=== PATIENT | female | born 1940 | race Caucasian/White ===

== ENCOUNTER → 2016-11-14 | Outpatient (CLI) | payer OTHER, BC ==
[~2016-11-14] MED LIST: ATENOLOL 25 MG25 M1 PO; COUMADIN 5 MG TA5 M1 PO; HYDROCHLOROTHIA25 M1 PO; LYRICA 50 MG50 MG PO; NORCO 5-325 TA1 EACH PO; PRAVACHOL40 MG PO; ULTRAM 50MG TAB50 MG PO; ZOCOR40 MG PO
== END ==
LOC: ULTRA 10-14 09:42
DX: I82.511 Chronic embolism and thrombosis of right femoral vein (principal); Z86.718 Personal history of other venous thrombosis and embolism

== ENCOUNTER → 2017-04-10 | Outpatient (CLI) | payer OTHER, BC | LOC: RAD 02:16 | DX: Z12.31 Encounter for screening mammogram for malignant neoplasm of breast (principal) ==

== ENCOUNTER → 2018-04-21 | Outpatient (CLI) | payer OTHER, BC | LOC: RAD 13:56 | DX: Z12.31 Encounter for screening mammogram for malignant neoplasm of breast (principal) ==

== ENCOUNTER 2018-08-10 16:08 | Inpatient (IN) | payer OTHER, BC ==
[~2018-08-10] VITALS: Ht 172.7 cm; Wt 66.7 kg
--- NOTE | ~2018-08-10 | O ---
[facility] [place] [address] OPERATIVE REPORT Name: MAKI RHODES Room #: 431-P [facility] IN M.R.#: [id number] Admission: 08/10/18 Attend Phys: Mary Lizarraga Discharge: Date of : 40 Report #: [id number] THIS REPORT FOR: //name// CC: John Lizarraga DATE OF SERVICE: 08/12/2018 PREOPERATIVE DIAGNOSIS: Left displaced femoral neck fracture. POSTOPERATIVE DIAGNOSIS: Left displaced femoral neck fracture. PROCEDURE: Left hip cemented hemiarthroplasty. SURGEON: Dandre Cross MD EXTRACT MIXER: Tosha Feldman PA-C. INDICATIONS FOR ASSISTANCE: Throughout the case, extensive retraction and manipulation of the hip was required. This was afforded to me by my assistant womens volleyball coach. ANESTHESIA: General endotracheal. IMPLANTS: [employer]ell [employer]hew size 10 Conquest cemented stem with a size 50+0 unipolar cobalt chrome head. ESTIMATED BLOOD LOSS: 50 mL. COMPLICATIONS: None. SPECIMENS: None. CONDITION UPON LEAVING THE OPERATING ROOM: Stable. INDICATION FOR PROCEDURE: The patient is a 78-year-old female who fell and sustained a left displaced femoral neck fracture. After discussion with her, she elected for treatment with hemiarthroplasty. DESCRIPTION OF PROCEDURE: Risks, benefits, alternatives, complications were discussed in detail with the patient including but not limited to risk of anesthesia, risk of damage to nerves, arteries and blood vessels, risk for infection and bleeding, risk for leg length discrepancy, instability and need for reoperation. Informed consent was obtained from the patient and the left hip was appropriately marked in the preoperative holding area. IV Ancef was given for preoperative antibiotics. She was brought to the operating room and general endotracheal anesthesia was induced without complication. She was then [facility] [address] [place] [address] OPERATIVE REPORT Name: MAKI RHODES Room #: 431-P [facility] IN M.R.#: [id number] Admission: 08/10/18 Attend Phys: Mary Lizarraga Discharge: Date of : 40 Report #: [id number] transferred to the operating room table and placed in the right lateral decubitus position with the left hip uppermost. Left hip and lower extremity were prepped and draped in normal sterile fashion. Timeout was performed properly identifying the patient and procedure as well as the instrumentation and implants. All in the operating room were in agreement. Standard posterior approach to the hip was made with a 10 blade through the skin. Dissection was taken down to the fascia with Bovie cautery and fascia was cleaned with Haq elevator. A fresh 10 blade was used to make a fascial incision. This was taken proximally and distally with curved Pickett scissor. Charnley retractor was placed. Trochanteric bursa was taken down with Bovie cautery. Piriformis tendon was identified, tagged and taken down with Bovie cautery. Short external rotators were also taken down with Bovie cautery. Capsulotomy was made and capsule ends were tagged for later repair. There was an obvious femoral neck fracture that was displaced and a femoral neck cut was cleaned up with an oscillating saw. Femoral head was removed and sized and found to be a size 50. A size 50 trial head was placed in the acetabulum and found to have a good fit. Attention was then turned to the femur. This was reamed and broached up to a size 12, at which point, the size 12 broach was stable. This trialed with a standard offset neck and a 40+0 head. The hip was reduced, taken through range of motion, found to be stable, found to have equal leg lengths. Hip was dislocated. Broach was removed. Final size 10 Conquest stem was cemented in place using standard cementation techniques. After the cement cured, this was trialed again with a size 50 head with a +0 neck. Hip was reduced, taken through range of motion, found to be stable, found to have equal leg lengths. Hip was dislocated one last time and a final size 50 cobalt chrome unipolar head with a +0 neck was placed. Hip was reduced, taken through range of motion, found to be stable, found to have equal leg lengths. The hip was thoroughly irrigated with normal saline. A periarticular injection consisting of morphine, ropivacaine, epinephrine and Toradol was placed around the hip joint capsule. A gram of vancomycin was placed deep in the joint. The capsule and piriformis were repaired with 0 FiberWire. Fascia was closed with 0 Vicryl, skin was closed with 2-0 Vicryl and 3-0 Monocryl. Dermabond and a PHYLICIA dressing was applied. The patient tolerated this procedure well and went to recovery room under care of Anesthesia postoperatively. By: [id number] Dandre Cross MD /malorie
[2018-08-10 16:21] VITALS: BP 147/69
[2018-08-10] MEDS ORDERED: DITROPAN XL5 MG PO (16:27)
[2018-08-10] MEDS ORDERED: METOPROLOL SUCC50 MG PO (16:27)
[2018-08-10] MEDS ORDERED: HYDROCHLOROTH12.5 M1 PO (16:27)
[2018-08-10 16:51] LABS: ABSOLUTE NEUTROPHILS 3.8 thou/uL (1.4-8.2); BASOPHILS 1.2 % (0.0-2.0); EOSINOPHILS 1.1 % (0.0-3.0); HEMATOCRIT 45.5 % (37.0-47.0); HEMOGLOBIN 15.9 gm/dL (12.0-15.0); LYMPHOCYTES 22.5 % (24.0-44.0); MCH 30.4 pg (26.0-34.0); MCHC 34.9 g/dL (28.0-37.0); MONOCYTES 7.3 % (1.0-8.0); PLATELET COUNT 150 thou/uL (150-400); POLYS 67.9 % (36.0-66.0); RBC 5.23 mil/uL (4.20-5.00); RDW 13.8 % (10.5-14.5); WBC 5.6 thou/uL (4.0-11.0)
[2018-08-10 16:59] LABS: CALCIUM 9.6 mg/dL (8.5-10.1); CREATININE 1.1 mg/dL (0.6-1.0); POTASSIUM 3.7 mmol/L (3.5-5.1)
[2018-08-10 17:04] LABS: ALBUMIN 4.3 g/dL (3.4-5.0); TOTAL BILIRUBIN 0.5 mg/dL (<0.1-1.0); TOTAL PROTEIN 8.2 g/dL (6.4-8.2)
[2018-08-10 17:30] VITALS: BP 147/69
[2018-08-10 17:58] VITALS: BP 151/64
[2018-08-10 20:15] VITALS: BP 137/79
[2018-08-11 00:12] VITALS: BP 114/64
[2018-08-11 03:39] LABS: CALCIUM 8.7 mg/dL (8.5-10.1); CREATININE 1.3 mg/dL (0.6-1.0)
--- NOTE | 2018-08-11 03:48 | NUR ---
PT S/P L HIP FX. SHE HAS PAIN THAT IS DESCRIBED SPASMS AT TIMES BUT IS ALSO SHARP. SOME BRUISING TO L HIP. SCDS IN PLACE. USING BEDPAN. NOT VOIDING MUCH.IVF INFUSING. NPO AFTER MIDNIGHT.
[2018-08-11 03:52] VITALS: BP 132/51
[2018-08-11 04:01] LABS: BASOPHILS 0.4 % (0.0-2.0); EOSINOPHILS 0.1 % (0.0-3.0); HEMATOCRIT 43.8 % (37.0-47.0); HEMOGLOBIN 14.4 gm/dL (12.0-15.0); LYMPHOCYTES 14.6 % (24.0-44.0); MCH 29.2 pg (26.0-34.0); MCHC 32.9 g/dL (28.0-37.0); MCV 88.8 fL (80.0-100.0); MONOCYTES 6.1 % (1.0-8.0); PLATELET COUNT 139 thou/uL (150-400); POLYS 78.8 % (36.0-66.0); RBC 4.93 mil/uL (4.20-5.00); RDW 14.7 % (10.5-14.5); WBC 6.3 thou/uL (4.0-11.0)
--- NOTE | 2018-08-11 07:38 | NUR ---
PATIENT DOES NOT FEEL SHE NEEDS BREATHING TREATMENTS AND ON LOOKING AT HER HISTORY I DO NOT SEE ANY REASONG WHY SHE IS ORDERED ON Q4 DUONEB, CAN WE PLEASE EITHER D/C THERAPY OR CHANGE TO PRN
--- NOTE | 2018-08-11 07:57 | EKG ---
[place] [address] [facility] [place] [address] ELECTROCARDIOGRAM REPORT Name: MAKI RHODES Room #: 431-P ADM IN M.R.#: [id number] Admission: 08/10/18 Attend Phys: Mary Lizarraga Discharge: Date of : 40 Report #: [id number] THIS REPORT FOR: //name// [facility] ED Test Date: 2018-08-10 Test Time: 16:44:29 Pat Name: MAKI RHODES Department: Room: [facility] Gender: F Trash Collector: ALEISHA : 1940 Requested By: Amado Gaspar Order Number: [id number] MD: Onofre Romero Measurements Intervals Benedicta Rate: 69 P: 67 MN: 216 QRS: 56 QRSD: 101 T: 70 QT: 435 QTc: 466 Interpretive Statements Sinus rhythm Borderline prolonged MN interval Low voltage, precordial leads Compared to ECG 01/15/2012 14:27:19 No significant change was found Electronically Signed On 08-11-2018 7:57:20 WET CHAR CONVEYOR TENDER by Onofre Romero [email or web address] <ELECTRONICALLY SIGNED> By: Onofre Romero MD, [facility] 08/11/18 [id number] Onofre Romero MD, [facility] /EPI
[2018-08-11 08:20] VITALS: BP 132/62
[2018-08-11 11:50] LABS: URINE BILIRUBIN NEGATIVE (Negative); URINE BLOOD 1+ (Negative); URINE CLARITY CLOUDY; URINE COLOR YELLOW; URINE GLUCOSE-RANDOM* NEGATIVE (Negative); URINE KETONES NEGATIVE (Negative); URINE LEUKOCYTES-REFLEX NEGATIVE (Negative); URINE NITRITE-REFLEX NEGATIVE (Negative); URINE PROTEIN (DIPSTICK) NEGATIVE (Negative); URINE SPECIFIC GRAVITY >= 1.030 (1.005-1.035); URINE UROBILINOGEN 0.2 E.U./dl (0.2-1.0)
[2018-08-11 12:01] LABS: AMORPHOUS URATES Many /LPF (None Seen); CASTS None Seen /LPF (None Seen); SQUAMOUS None Seen /LPF (0-3)
[2018-08-11 12:02] LABS: BACTERIA-REFLEX 1-9 Few /HPF (None Seen); URINE RBC 0-2 Rare /HPF (0-2); URINE WBC-REFLEX 0-5 Rare /HPF (0-5)
[2018-08-11 15:42] VITALS: BP 138/63
[2018-08-11 19:54] VITALS: BP 115/97
--- NOTE | 2018-08-11 20:22 | NUR ---
S/P LEFT HIP FX NPO ATER MIDNIGHT. PAIN LLE 8/10 WITH MOVEMENT. AGREED TO PO PAIN MEDS. IN IN L AC NS RUNING @100 CC/HR. MCKAY IN PLACE. LOWER EXT ARE WARM AND PULSES PRESENT. L HIP HAS A BRUISE NOTED. ATE 25% OF EVENING MEAL.
--- NOTE | 2018-08-11 20:29 | NUR ---
ASSUMED CARE AT 0700, SHIFT ASSESSMENT DONE, NPO SINCE LAST NIGHT. PATIENT WAS SUPPOSED TO GO TO SURGERY TODAY FOR HIP FRACTURE. BUT DUE TO SCHEDULING CONFLICT, WAS NOT ABLE TO GO FOR SURGERY, CONSENT SIGNED. WAS STARTED ON DIET THIS AFTERNOON, EATING MODERATE AMOUNT. REPROTED PAIN AND MUSCLE SPASM, PRN PAIN MEDS GIVEN. NPO FROM [facility], SURGERY SCHEDULED FOR TOMORROW MORNING.
--- NOTE | 2018-08-11 22:46 | NUR ---
ATE 25% OF EVENING MEAL. REQUESTED BANNAS AND ICE CREAM, PROVIDED. WILL BE NPO AFTER MIDNIGHT. PRN HYDROCODONE 5MG PO PROVIDED FOR PAIN 8/10 IN LLE.
[2018-08-12 05:47] LABS: HEMATOCRIT 41.4 % (37.0-47.0); HEMOGLOBIN 13.5 gm/dL (12.0-15.0)
[2018-08-12 05:57] VITALS: BP 122/52
--- NOTE | 2018-08-12 05:58 | NUR ---
IV MORPHINE 4MG PROVIDED FOR 04/14 PAIN @ 05:15. 1000 ML BAG OF NS HUNG. PROTONIX HELD D/T NPO. REMAINS NPO FOR SURGICAL PROCEDURE SCHEDULED FOR TODAY. ORAL SWABS PROVIDED. REPOSITIONED WITH L HIP ON WEDGE AND PULLED UP IN BED. 500CC JOANIE URINE EMPTIED FROM MCKAY CATHETER BAG.
[2018-08-12 06:01] LABS: CALCIUM 8.6 mg/dL (8.5-10.1); POTASSIUM 4.1 mmol/L (3.5-5.1)
--- NOTE | 2018-08-12 06:50 | NUR ---
TEMP OF 101.5 NOTED. ORDER OBTAINED FOR TYLENOL SUPPOSITORY, WHICH WAS PROVIDED. PATIENT DENIES ADDITIONAL SYMPTOMS.
[2018-08-12 07:33] LABS: FOLIC ACID 15.9 ng/mL (8.6-58.9)
[2018-08-12 08:40] VITALS: BP 115/49
[2018-08-12 10:00] VITALS: BP 125/52
[2018-08-12 13:24] LABS: HEMATOCRIT 39.4 % (37.0-47.0); HEMOGLOBIN 12.8 gm/dL (12.0-15.0); MCH 29.5 pg (26.0-34.0); MCHC 32.6 g/dL (28.0-37.0); MCV 90.6 fL (80.0-100.0); RBC 4.35 mil/uL (4.20-5.00); RDW 14.7 % (10.5-14.5); WBC 6.2 thou/uL (4.0-11.0)
--- NOTE | 2018-08-12 17:03 | NUR ---
RESTING POST LEFT HIP HEMIARTHROPLASTY. APNEA MONITOR IN PLACE. REMAINS ON 3LNC DUE TO LOW SAO2 WHILE SLEEPING. LEFT LATERAL HIP PHYLICIA DRESSING DRY AND INTACT. ICE PACK APPLIED TO INCISION FOR COMFORT. ALERT AND ORIENTED X 4, LUNGS DIMISHED IN ALL KABA BILATERALLY. TOLERATING CLEAR LIQUIDS WITH NO REPORTED N/V. MCKAY DRAINING ADEQUATE AMOUNTS OF URINE TO DEPENDENT DRAINAGE. CALLS APPROPRIATELY FOR ANY NEEDED ASSISTANCE.
--- NOTE | 2018-08-12 17:13 | NUR ---
VSS-AFEBRILE. LUNGS SOUNDS DIMINISHED IN ALL KABA BILATERALLY. WEARING 2.5LNC, WHICH IS HOME SETTING WELL. C/O SOA WITH EXERTION. NON PRODUCTIVE COUGH. EDUCATED ON COUGHING AND DEEP BREATHING EXERCISES, WAS ABLE TO DEMONSTRATE UNDERSTANDING. EDUCATED ON USE OF CALL LIGHT, VERBALIZED UNDERSTANDING. CALLS APPROPRIATELY FOR ANY NEEDED ASSISTANCE.
[2018-08-12 20:46] VITALS: BP 126/61
[2018-08-13 00:36] VITALS: BP 138/57
--- NOTE | 2018-08-13 04:08 | NUR ---
ASSUMED PT CARE 1899. PT ALERT AND ORIENTED. VSS. REASSESSMENT COMPLETE. 2.5 L OXYGEN VIA NC OXYGEN SAT 99%. MCKAY IN PLACE, ADEQUATE URINE OUTPUT. PT STATES PAIN WELL CONTROLLED. ICE PACK TO HIP. PHYLICIA DRESSING C/D/I. PT DENIES NAUSEA, TOLERATING CLEAR LIQUIDS WELL. IV DRESSING C/D/I, NO SIGNS OF INFILTRATION. PT CALL LIGHT AND PERSONal belonings within reach. will continue poc until eos.
[2018-08-13 04:26] LABS: HEMATOCRIT 35.7 % (37.0-47.0); HEMOGLOBIN 12.1 gm/dL (12.0-15.0); MCH 30.5 pg (26.0-34.0); MCHC 33.9 g/dL (28.0-37.0); RBC 3.96 mil/uL (4.20-5.00); RDW 14.4 % (10.5-14.5); WBC 6.5 thou/uL (4.0-11.0)
[2018-08-13 04:27] LABS: ALBUMIN 2.6 g/dL (3.4-5.0); CREATININE 0.9 mg/dL (0.6-1.0); PHOSPHORUS 1.9 mg/dL (2.5-4.9); POTASSIUM 4.3 mmol/L (3.5-5.1)
[2018-08-13 04:47] VITALS: BP 138/58
--- NOTE | 2018-08-13 09:06 | NUR ---
INITIAL ASSESSMENT: Pt evaluated for d/c planning needs. Reviewed chart and spoke with nurse and pt. Pt is alert and oriented. Pt lives alone in house and was independent with ADL's prior to admission to the hospital. Pt has cane, but does not normally use. Pt remains active in the community and is still driving. Pt has trip planned for September 2018. Pt has been to [facility] in the past, and wants to go there on d/c from hospital. Referral sent to [facility]. Will await return call re: bed availability and acceptance. Pt is agreeable to SNF if she does not go to [facility]. Will remain available to assist as needed.
[2018-08-13 19:11] VITALS: BP 161/65
--- NOTE | 2018-08-13 19:51 | NUR ---
Assumed pt care at 7am.Pt in and out of bed with assist.Assessment completed. vss.Pt up in hallways with therapy.Fair endurance noted.Pt was up in chair for oven [address] Cross and Zia here,order noted.Pt will be dc to [facility] rehab in am. Report off to cabrera chavez.
--- NOTE | 2018-08-13 21:15 | NUR ---
ASSUMED CARE @19:15, IN BED, REQUESTED REPOSITIONING, THIS WAS DONE X2 ASSIST. IV RUNNING NS TO IV SITE IN L HAND. PAIN 4/10 TO BACK AND L HIP REPOSITIONED FOR COMFORT, HYDROCODONE5/325 PROVIDED @ 20:45 FOR COMFORT. LUNGS CTA, HRRR EXTRIMITY PULSES PRESENT, TOES WARM RIGHT FOOT SLIGHTLY RED. CLEAR JOANIE URINE DRAINING TO GRAVITY VIA MCKAY.
[2018-08-14 02:54] VITALS: BP 161/65
[2018-08-14 05:02] VITALS: BP 146/68
[2018-08-14 05:20] LABS: HEMATOCRIT 34.7 % (37.0-47.0); HEMOGLOBIN 11.7 gm/dL (12.0-15.0); MCH 30.4 pg (26.0-34.0); MCHC 33.8 g/dL (28.0-37.0); MCV 89.9 fL (80.0-100.0); RBC 3.86 mil/uL (4.20-5.00); RDW 14.3 % (10.5-14.5); WBC 4.6 thou/uL (4.0-11.0)
--- NOTE | 2018-08-14 06:48 | NUR ---
NELY D/Rah @ 06:30, TOLERATED WELL. 0700 MEDS GIVEN, TOLERATED WELL.
[2018-08-14 08:30] VITALS: BP 167/84
[2018-08-14] MEDS ORDERED: ENOXAPARIN40 MG/0.1 SUBQ (10:45)
--- NOTE | 2018-08-14 12:18 | NUR ---
PT TO DISCHARGE TO [facility] TODAY PICKUP AT 1300. IV ACSESS DCD. PRN PAIN MED GIVEN AT THIS TIME. ALL BELONGINGS PACKED TO BE SENT WITH PATIENT.
--- NOTE | 2018-08-14 13:10 | NUR ---
PATIENT LEFT AT 1300 VIA W/C TRANSPORT FOR [facility]. ALL BELONGINGS PACKED AND SENT WITH PATIENT.
== END 2018-08-14 13:00 | DRG 469 ==
LOC: ER 16:08 → 4E 16:48 → EROBS 16:48 → 4E 18:13
PROVIDERS: Emergency Medicine; Nurse Practitioner; Nurse Practitioner Family; Orthopaedic Surgery; ADMIT Hospitalist
PROC: 0SRS019 Replacement of Left Hip Joint, Femoral Surface with Metal Synthetic Substitute, Cemented, Open Approach (ICD-10-PCS; principal; 2018-08-12)
DX: S72.002A Fracture of unspecified part of neck of left femur, initial encounter for closed fracture (principal); E43 Unspecified severe protein-calorie malnutrition; N17.9 Acute kidney failure, unspecified; N18.4 Chronic kidney disease, stage 4 (severe); E78.00 Pure hypercholesterolemia, unspecified; E78.5 Hyperlipidemia, unspecified; K58.9 Irritable bowel syndrome, unspecified; Z66 Do not resuscitate; G89.29 Other chronic pain; I12.9 Hypertensive chronic kidney disease with stage 1 through stage 4 chronic kidney disease, or unspecified chronic kidney disease; M54.9 Dorsalgia, unspecified; Z60.2 Problems related to living alone; M62.84 Sarcopenia; N32.81 Overactive bladder; E53.8 Deficiency of other specified B group vitamins; E83.39 Other disorders of phosphorus metabolism; Z90.49 Acquired absence of other specified parts of digestive tract; Z86.12 Personal history of poliomyelitis; Z91.013 Allergy to seafood; Z47.89 Encounter for other orthopedic aftercare; Z87.891 Personal history of nicotine dependence; Z86.718 Personal history of other venous thrombosis and embolism; Z79.899 Other long term (current) drug therapy; W01.0XXA Fall on same level from slipping, tripping and stumbling without subsequent striking against object, initial encounter; Y93.89 Activity, other specified; Y92.89 Other specified places as the place of occurrence of the external cause; Y99.8 Other external cause status; Z68.22 Body mass index [BMI] 22.0-22.9, adult; Y93.29 Activity, other involving ice and snow
CPT/HCPCS: 10084; 50010; 50101; 50382; 50414; 51057; 51130; 51225; 51226; 53000; 53078; 54118; 56460; 56524; 56527; 56528; 56530; 57095; 57103; 57165; 62110; 62900; 70005

== ENCOUNTER → 2019-04-25 | Outpatient (CLI) | payer OTHER, BC ==
[~2019-04-25] MED LIST changes: +DITROPAN XL5 MG PO; +ENOXAPARIN40 MG/0.1 SUBQ; +HYDROCHLOROTH12.5 M1 PO; +METOPROLOL SUCC50 MG PO
== END ==
LOC: RAD 10:54
DX: Z12.31 Encounter for screening mammogram for malignant neoplasm of breast (principal)

== ENCOUNTER → 2020-04-26 | Outpatient (CLI) | payer OTHER, BC | LOC: RAD 09:19 | PROVIDERS: ATTEND Obstetrics & Gynecology | DX: Z12.31 Encounter for screening mammogram for malignant neoplasm of breast (principal); N64.89 Other specified disorders of breast ==

== ENCOUNTER → 2020-05-11 | Outpatient (CLI) | payer OTHER, BC | LOC: SJCVC 09:08 | PROVIDERS: ATTEND Internal Medicine | DX: R94.31 Abnormal electrocardiogram [ECG] [EKG] (principal); I21.09 ST elevation (STEMI) myocardial infarction involving other coronary artery of anterior wall; E78.00 Pure hypercholesterolemia, unspecified ==

== ENCOUNTER → 2020-06-08 | Outpatient (CLI) | payer OTHER, BC | LOC: SJCVCIMAG 07:53 | PROVIDERS: ATTEND Internal Medicine | DX: I08.8 Other rheumatic multiple valve diseases (principal); I49.3 Ventricular premature depolarization; E78.5 Hyperlipidemia, unspecified; I10 Essential (primary) hypertension; Z79.899 Other long term (current) drug therapy; Z87.891 Personal history of nicotine dependence ==

== ENCOUNTER → 2020-07-20 | Outpatient (CLI) | payer OTHER, BC | LOC: SJCVC 09:38 | PROVIDERS: ATTEND Internal Medicine | DX: R07.89 Other chest pain (principal); I10 Essential (primary) hypertension; E78.5 Hyperlipidemia, unspecified; Z87.891 Personal history of nicotine dependence; Z72.89 Other problems related to lifestyle; Z79.899 Other long term (current) drug therapy ==

== ENCOUNTER → 2021-05-02 | Outpatient (CLI) | payer OTHER, BC | LOC: BC 10:10 | PROVIDERS: ATTEND Obstetrics & Gynecology | DX: Z12.31 Encounter for screening mammogram for malignant neoplasm of breast (principal) ==